=== PATIENT | male | born 1980 | race African-American/Black ===

== ENCOUNTER 2025-01-09 15:27 | Emergency (ER) | payer MEDICAID ==
[~2025-01-09] VITALS: Ht 190.5 cm; Wt 75.0 kg
[2025-01-09 15:30] VITALS: O2SAT 99
[2025-01-09 15:33] VITALS: O2SAT 97
[2025-01-09 16:18] VITALS: TEMP 98.7
[2025-01-09] MEDS: METHOCARBAMOL 750MG TABLET PO SCH (16:18)
[2025-01-09] MEDS: ACETAMINOPHEN 325MG TABLET PO ONE (16:18)
[2025-01-09] MEDS ORDERED: LIDO700A15 TP (16:59)
[2025-01-09] MEDS ORDERED: IBUP-2028 MT (16:59)
[2025-01-09] MEDS ORDERED: TOPUD PO (16:59)
[2025-01-09] MEDS ORDERED: METH-653 MT (16:59)
[2025-01-09 17:13] VITALS: BP 114/79; PULSE 83; RESP 16
[2025-01-09] MEDS: IBUPROFEN 400MG TABLET PO ONE (17:13)
== END 2025-01-09 17:22 | disposition home or self-care (01) ==
LOC: ER 15:27
DX: S13.4XXA Sprain of ligaments of cervical spine, initial encounter (principal); S16.1XXA Strain of muscle, fascia and tendon at neck level, initial encounter; I10 Essential (primary) hypertension; Z87.891 Personal history of nicotine dependence; X58.XXXA Exposure to other specified factors, initial encounter; Y93.89 Activity, other specified; Y92.89 Other specified places as the place of occurrence of the external cause; Y99.8 Other external cause status
CPT/HCPCS: 99284